=== PATIENT | male | born 1940 | race Caucasian/White ===

== ENCOUNTER 2018-01-11 08:59 | Outpatient (REF) | payer MEDICARE, BC, SELFPAY ==
[2018-01-11 22:24] LABS: Anion Gap 10.8 mmol/L (3-11); BUN 32 mg/dL (7-18); CO2 27.2 mmol/L (21.0-32.0); CREATININE 1.38 mg/dL (0.70-1.30); Calcium 9.5 mg/dL (8.5-10.1); Chloride 101 mmol/L (98-107); Estimated GFR 49.83 (mL/min/1.73m2); Glucose 102 mg/dL (70-100); Potassium 3.7 mmol/L (3.5-5.1); Sodium 139 mmol/L (136-145)
== END 2018-01-11 09:19 ==
LOC: NCHCN 08:59
PROVIDERS: Visit Provider Internal Medicine
DX: F39 Unspecified mood [affective] disorder (principal); I10 Essential (primary) hypertension
CPT/HCPCS: 80048

== ENCOUNTER 2019-02-14 08:52 | Outpatient (REF) | payer BC, SELFPAY ==
[2019-02-14 21:17] LABS: Anion Gap 9.7 mmol/L (3-11); BUN 24 mg/dL (7-18); CO2 27.3 mmol/L (21.0-32.0); CREATININE 1.56 mg/dL (0.70-1.30); Calcium 9.8 mg/dL (8.5-10.1); Calculated LDL 156 mg/dL; Chloride 101 mmol/L (98-107); Cholesterol 245 mg/dL (50-200); Estimated GFR 43.15 (mL/min/1.73m2); Glucose 114 mg/dL (70-100); HDL Cholesterol 74 mg/dL (40-60); Potassium 4.1 mmol/L (3.5-5.1); Sodium 138 mmol/L (136-145); Triglyceride 77 mg/dL (30-150)
== END 2019-02-14 09:12 ==
LOC: NCHCN 08:52
PROVIDERS: Visit Provider Internal Medicine
DX: I10 Essential (primary) hypertension (principal); Z13.220 Encounter for screening for lipoid disorders
CPT/HCPCS: 80048; 80061

== ENCOUNTER 2019-09-19 09:46 | Outpatient (REF) | payer BC, SELFPAY ==
[2019-09-19 21:42] LABS: Anion Gap 8.2 mmol/L (3-11); BUN 28 mg/dL (7-18); CO2 27.8 mmol/L (21.0-32.0); CREATININE 1.47 mg/dL (0.70-1.30); Calcium 9.8 mg/dL (8.5-10.1); Calculated LDL 162 mg/dL (<100); Chloride 99 mmol/L (98-107); Cholesterol 258 mg/dL (<200); Estimated GFR 46.21 (mL/min/1.73m2); Glucose 125 mg/dL (74-106); HDL Cholesterol 84 mg/dL (40-60); Potassium 4.4 mmol/L (3.5-5.1); Sodium 135 mmol/L (136-145); Triglyceride 60 mg/dL (<150)
== END 2019-09-19 10:06 ==
LOC: NCHCN 09:46
PROVIDERS: Visit Provider Internal Medicine
DX: N18.3 Chronic kidney disease, stage 3 (moderate) (principal); E78.5 Hyperlipidemia, unspecified; F39 Unspecified mood [affective] disorder; I10 Essential (primary) hypertension
CPT/HCPCS: 80048; 80061